=== PATIENT | female | born 1965 | race Caucasian/White ===

== ENCOUNTER 2017-07-22 12:23 | Emergency (ER) | payer OTHER ==
[~2017-07-22] VITALS: Ht 167.6 cm; Wt 65.8 kg
[~2017-07-22 12:23] MED LIST: BACTRIM DS TAB1 EACH PO; MEDROLDOSEPACK PO
[2017-07-22 12:48] LABS: URINE BILIRUBIN NEGATIVE (Negative); URINE BLOOD NEGATIVE (Negative); URINE CLARITY CLEAR; URINE COLOR YELLOW; URINE GLUCOSE-RANDOM NEGATIVE (Negative); URINE KETONES NEGATIVE (Negative); URINE LEUKOCYTES-REFLEX NEGATIVE (Negative); URINE NITRITE-REFLEX NEGATIVE (Negative); URINE PROTEIN NEGATIVE (Negative); URINE SPECIFIC GRAVITY <= 1.005 (1.005-1.030); URINE UROBILINOGEN 0.2 E.U./dl (0.2-1.0)
[2017-07-22 12:56] LABS: ABSOLUTE LYMPHOCYTES 0.5 thou/uL (0.8-5.3); ABSOLUTE MONOCYTES 0.3 thou/uL (0.0-1.2); ABSOLUTE NEUTROPHILS 2.8 thou/uL (1.6-8.1); APTT 32.8 Seconds (25.0-31.3); BASOPHILS 0.7 %; CALCIUM 8.1 mg/dL (8.5-10.1); CREATININE 0.6 mg/dL (0.6-1.3); EOSINOPHILS 1.1 %; HEMATOCRIT 41.6 % (37.0-47.0); HEMOGLOBIN 14.3 gm/dL (12.0-15.0); INR 1.1; LYMPHOCYTES 13.1 %; MCH 34.9 pg (26.0-34.0); MCHC 34.4 g/dL (28.0-37.0); MCV 101.6 fL (80.0-100.0); MONOCYTES 9.5 %; MPV 9.6 fl. (7.2-11.1); NUCLEATED RBCS 0 /100WBC; POLYS 75.6 %; POTASSIUM 3.1 mmol/L (3.5-5.1); PROTIME 10.7 Seconds (9.20-11.50); RBC 4.09 mil/uL (4.20-5.00); WBC 3.7 thou/uL (4.0-11.0)
[2017-07-22 13:02] LABS: AMP/METHAMP Negative (Negative); BARBITURATES Negative (Negative); BENZODIAZEPINES Negative (Negative); COCAINE Negative (Negative); METHADONE Negative (Negative); OPIATES Negative (Negative); PCP Negative (Negative); THC Negative (Negative)
[2017-07-22 13:07] LABS: PLATELET COUNT* 42 thou/uL (150-400)
[2017-07-22 13:09] LABS: ALBUMIN 3.6 g/dL (3.4-5.0); TOTAL BILIRUBIN 0.6 mg/dL (<0.1-1.0); TOTAL PROTEIN 7.8 g/dL (6.4-8.2)
[2017-07-22 13:18] LABS: ALCOHOL 250 mg/dL (<10); SALICYLATE 4.6 mg/dL (2.8-20.0)
[2017-07-22 13:19] LABS: ACETAMINOPHEN < 2 ug/mL (10-30)
[2017-07-22 13:26] LABS: PLATELET ESTIMATE DECREASED
[2017-07-22 13:38] VITALS: BP 134/103
--- NOTE | 2017-07-23 09:34 | EKG ---
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 : 1965 Requested By: Alexandre Mariano Order Number: [id number] MD: Luis Felipe Ojeda Measurements Intervals [place] Rate: 74 P: 86 IA: 123 QRS: 84 QRSD: 101 T: 58 QT: 433 QTc: 481 Interpretive Statements Sinus rhythm with nonspecific ST segment depression Borderline prolonged QT interval No previous ECG available for comparison Electronically Signed On 07-23-2017 9:34:26 CDT by Luis Felipe Ojeda [email or web address] <ELECTRONICALLY SIGNED> By: Luis Felipe Ojeda MD, [facility] 07/23/17 0934 1255 1255 Luis Felipe Ojeda MD, FACC /EPI
== END 2017-07-22 13:41 | disposition home or self-care (01) ==
LOC: M.ERS 12:23
PROVIDERS: Family Medicine
DX: F10.129 Alcohol abuse with intoxication, unspecified (principal); F17.210 Nicotine dependence, cigarettes, uncomplicated; Z90.711 Acquired absence of uterus with remaining cervical stump; Z88.5 Allergy status to narcotic agent